=== PATIENT | male | born 1970 | race Caucasian/White ===

== ENCOUNTER 2019-01-11 14:17 | Emergency (ER) | payer OTHER ==
--- NOTE | 2019-01-11 14:25 | PDOC ---
Rapid Medical Evaluation Chief Complaint: Headache Time Seen by Provider: 01/11/19 14:20 Medical Evaluation: 01/11/19 14:25 I have performed a brief in-person evaluation of this patient. The patient presents with a chief complaint of: headache, htn Pertinent physical exam findings:stable and in NAD, non-focal I have ordered the following:labs/ekg pt did not want to have labs drawn now. feeling better, agreed to ekg due to heart rate, hx tachycardia The patient will proceed to the ED for further evaluation. 01/11/19 14:26 Discharge Disposition - Discharge Dispostion Condition at time of disposition: Stable - Referrals - Patient Instructions - Post Discharge Activity
[2019-01-11 14:28] VITALS: TEMP 97.8; BMI 33.2
--- NOTE | 2019-01-11 15:20 | PDOC ---
History of Present Illness - General Chief Complaint: Headache Stated Complaint: SENT BY PCP FOR HTN Time Seen by Provider: 01/11/19 14:20 History Source: Patient Exam Limitations: No Limitations - History of Present Illness Initial Comments: 01/11/19 15:15 48-year-old male presents emergency room with complaints of episodic headache that resolved prior to arrival. Patient states was at his [employer] health program watching a movie that cause him to be upset and stressed. Patient states tried to walk it off and then walked to the nurse's station to have his blood pressure track where he states it was reading at 180/106 patient denies visual changes, nausea, chest pain at that time patient states took 2 aspirins and in route to the ER his symptoms resolve. Patient currently asymptomatic. Timing/Duration: resolved prior to arrival Severity: mild Associated Symptoms: reports: denies symptoms Past History - Past Medical History Allergies/Adverse Reactions: Allergies Allergy/AdvReac Type Severity Reaction Status Date / Time water pill meds Allergy Uncoded 01/11/19 14:25 Home Medications: Ambulatory Orders Alprazolam [Xanax] 0.25 mg PO BID 01/11/19 Ezetimibe [Zetia] 10 mg PO DAILY 01/11/19 Lisinopril 5 mg PO DAILY 01/11/19 COPD: No HTN: Yes Hypercholesterolemia: Yes Other medical history: anxiety-tachycardic - Surgical History Gastric Stapling: No Lung Surgery: No - Immunization History Immunization Up to Date: No - Suicide/Smoking/Psychosocial Hx Smoking History: Never smoked Have you smoked in the past 12 months: No Information on smoking cessation initiated: No Hx Alcohol Use: Yes Drug/Substance Use Hx: No Patient Lives Alone: Yes Lives with/in: lives alone Review of Systems - Review of Systems Able to Perform ROS?: No Is the patient limited Bengali proficient: No Constitutional: No: Symptoms Reported HEENTM: No: Symptoms Reported Respiratory: No: Symptoms reported Cardiac (ROS): No: Symptoms Reported ABD/GI: No: Symptoms Reported : No: Symptoms Reported Neurological: Yes: Headache Psychiatric: Yes: Anxiety, Stressors, Emotional Problems Endocrine: No: Symptoms Reported Hematologic/Lymphatic: No: Symptoms Reported *Physical Exam - Vital Signs Last Vital Signs Temp Pulse Resp BP Pulse Ox 97.8 F 115 H 16 144/93 95 01/11/19 14:26 01/11/19 14:26 01/11/19 14:26 01/11/19 14:26 01/11/19 14:26 - Physical Exam General Appearance: Yes: Nourished, Appropriately Dressed. No: Apparent Distress HEENT: negative: Pale Conjunctivae Respiratory/Chest: positive: Lungs Clear, Normal Breath Sounds. negative: Respiratory Distress, Accessory Muscle Use Cardiovascular: positive: Regular Rhythm, Tachycardia (111). negative: Murmur Gastrointestinal/Abdominal: positive: Soft. negative: Tenderness Extremity: negative: Pedal Edema Integumentary: positive: Normal Color, Warm, Moist Neurologic: positive: Normal Mood/Affect (anxious and flighty conversation), Motor Strength 5/5 (ambulatory) Medical Decision Making - Medical Decision Making 01/11/19 15:22 Chief complaint: Episodic headache which resolved. Patient was in behavioral health program when symptoms occurred. Exam: Vital stable. Patient slightly tachycardia at 111. EKG normal sinus tachycardia patient states had about 7 cups of coffee today and did not take his Ativan this morning. Patient anxious and having flighty conversation not petinent to ED visit. Pt refused blood work and requesting to go home Plan: discharge home , repeat bp 145/90, hr 109-111 01/11/19 15:26 *DC/Admit/Observation/Transfer Diagnosis at time of Disposition: Headache - Discharge Dispostion Disposition: HOME Condition at time of disposition: Good - Referrals - Patient Instructions Printed Discharge Instructions: High Blood Pressure (Hypertension) ( Alternative Therapy) Additional Instructions: Please continue taking medications for hypertension. I have enclosed alternate therapy for treatment of hypertension such as lifestyle modification decreasing your stress and relaxation - Post Discharge Activity
[2019-01-11 15:23] VITALS: BP 145/89; PULSE 111
--- NOTE | 2019-01-12 10:55 | EKG ---
Test Reason : Blood Pressure : / mmHG Vent. Rate : 108 BPM Atrial Rate : 108 BPM P-R Int : 168 ms QRS Dur : 100 ms QT Int : 350 ms P-R-T Axes : 068 063 062 degrees QTc Int : 469 ms SINUS TACHYCARDIA POSSIBLE LEFT ATRIAL ENLARGEMENT NO PREVIOUS ECGS AVAILABLE Confirmed by DORA STROUD MD ([id number]) on 01/12/2019 10:54:31 AM Referred By: Confirmed By:DORA STROUD MD
== END 2019-01-11 15:35 | disposition home or self-care (01) ==
LOC: JER 14:17
DX: R51 Headache (principal); I10 Essential (primary) hypertension; F41.9 Anxiety disorder, unspecified
CPT/HCPCS: 93005; 93010; 99282-25

== ENCOUNTER 2021-04-06 03:02 | Emergency (ER) | payer OTHER ==
[2021-04-06 03:42] VITALS: TEMP 98.3; BMI 35.6
[2021-04-06] MEDS ORDERED: LIDOCAINE 5% TOPICAL PATCH TP ONE (03:56)
[2021-04-06] MEDS ORDERED: ACETAMINOPHEN 325 MG TABLET (FP) PO ONE (03:56)
[2021-04-06] MEDS ORDERED: ACETAMINOPHEN 325 MG TABLET (FP) ONE (03:58)
[2021-04-06] MEDS ORDERED: LIDOCAINE 5% TOPICAL PATCH ONE (03:59)
[2021-04-06 05:34] VITALS: BP 151/76; PULSE 91
[2021-04-06] MEDS ORDERED: LIDOCAINE PATCH REMOVAL MC SCH (22:00)
== END 2021-04-06 05:34 | disposition home or self-care (01) ==
LOC: JER 03:02
DX: R07.9 Chest pain, unspecified (principal); M25.512 Pain in left shoulder
CPT/HCPCS: 71046-TC-FY; 73030-TC-LT-FY; 93005; 93010; 99284-25